=== PATIENT | male | born 1980 | race Caucasian/White ===

== ENCOUNTER 2023-11-02 14:34 | Emergency (ER) | payer MEDICARE ==
[~2023-11-02] VITALS: Ht 190.5 cm; Wt 131.0 kg
[2023-11-02 14:43] VITALS: TEMP 98
[2023-11-02 15:48] VITALS: BP 206/115; PULSE 110; RESP 16; O2SAT 95
[2023-11-02] MEDS ORDERED: AMOX-117 PO (16:31)
[2023-11-02] MEDS: ketorolac tromethamine 15mg/ml inj. IM ONE (16:48)
[2023-11-02] MEDS: dexamethasone sod phosphate 10mg/ml inj IM STA (16:48)
== END 2023-11-02 16:49 | disposition home or self-care (01) ==
LOC: ER 14:35
DX: K04.7 Periapical abscess without sinus (principal); K08.89 Other specified disorders of teeth and supporting structures
CPT/HCPCS: 99283